=== PATIENT | female | born 1975 | race Caucasian/White ===

== ENCOUNTER 2017-12-19 11:29 | Emergency (ER) | payer OTHER ==
--- OUTSIDE RECORDS SUMMARY | 2017-12-19 11:33 | XMS REPORT | Continuity of Care Document ---
:1975 Author Organization Interface Problems Problem Status Onset Classification Date Comments Source Date Reported M25.571 - Active OPID PAIN IN 6 [place], RIGHT ANKLE OPID AND JOINTS [facility] Medications Medication Details Route Status Patient Ordering Order Source Instructions Provider Date Allergies, Adverse Reactions, Alerts Substance Category Reaction Severity Reaction Status Date Comments Source type Reported NKDA Assertion Drug Active OPID allergy [place] Immunizations Immunization Date Given Site Status Last Updated Comments Source Results Order Results Value Reference Date Interpretation Comments Source Name Range Ankle Ankle 2 RIGHT ANKLE RADIOGRAPH 2 VIEW 12/21 - OPID 2 views - [place] views DX CLINICAL INDICATION: Posttraumatic right lateral ankle pain Read by : Dalton Nguyen MD Dictated Date/time: 12/22/15 16:34 Electronically Signed by: Dalton Nguyen MD 12/22/15 16:35 FINAL REPORT COMPARISON: None IMPRESSION: There is soft tissue swelling of the lateral aspect of the ankle. No acute bony abnormalities are visualized. The bilateral malleoli, ankle mortise, and base of the fifth metatarsal appear intact. SL:16 Vital Signs Vital Sign Value Date Comments Source Encounters Location Location Encounter Encounter Reason Attending ADM DC Status Source Details Type Number For Provider Date Date Visit [facility] Outpt Diag [id number] Adeola 12/21 12/22 [facility] Lalit /2015 [facility] [place] [facility] [id number] LOAN 08/16 [facility] ESCALERA Robert Procedures Procedure Code Date Perfomer Comments Source Laparoscopic [id number] endometriosis OPID procedure<sup>1</ 0 [place] sup>
--- OUTSIDE RECORDS SUMMARY | 2017-12-19 11:33 | XMS REPORT | Summary of Care ---
:1975 Author Organization [facility] Outpatient [facility] [place] Address [address], [place] [address]- Encounter HQ Encntr_alias(FIN) [id number] Date(s): 12/22/15 - 12/22/15 [facility] Outpatient [address] [id number]- [phone] Discharge Disposition: Home or Self Care Attending Physician: Adeola Cohn MD Vital Signs No data available for this section Problem List No data available for this section Allergies, Adverse Reactions, Alerts Substance Reaction Severity Status NKDA Active Medications No data available for this section Results No data available for this section Immunizations No data available for this section Procedures Procedure Date Related Diagnosis Body Site Laparoscopic procedure1 04/01/99 1endometriosis Social History Social History Type Response Smoking Status Never smoker; Exposure to Tobacco Smoke None; Cigarette Smoking Last 365 Days No; Reg Smoking Cessation Counseling No Assessment and Plan No data available for this section
[2017-12-19 12:02] LABS: Absolute Lymphocytes (CBC) 1.6 K/uL (0.7-4.9); Absolute Monocytes 0.4 K/uL (0.1-1.3); Absolute Neutrophil 2.8 K/uL (1.8-8.0); Basophils % 1.1 % (0-1.3); Eosinophils % 1.3 % (0-4.4); Hematocrit 36.9 % (36.0-45.0); Lymphocytes % 32.7 % (15.3-44.8); MCH 32.1 pg (27.0-35.0); MCV 93.7 fL (80-100); MPV 9.1 fL (7.6-11.3); Monocytes % 7.8 % (3.3-12.3); RBC Red Blood Cell Count 3.94 M/uL (3.86-4.86)
[2017-12-19] MEDS ORDERED: MEPERIDINE HCL 50 MG/ML AMP ONE (12:07)
[2017-12-19] MEDS ORDERED: PROMETHAZINE 25 MG/ML VIAL ONE (12:07)
[2017-12-19 12:08] LABS: Urine Blood NEGATIVE (NEG); Urine Glucose NEGATIVE (NEG); Urine Protein NEGATIVE (NEG); Urine Specific Gravity 1.015 (1.005-1.030); Urine pH 5.5 (5.0-7.0)
[2017-12-19 12:11] LABS: Albumin 4.3 g/dL (3.4-5.0); Bilirubin Direct 0.1 mg/dL (0-0.2); Bilirubin Total 0.6 mg/dL (0.2-1.0); Potassium 3.6 mmol/L (3.5-5.1); Protein, Total 8.3 g/dL (6.4-8.2)
--- NOTE | 2017-12-19 12:50 | RAD REPORT ---
EXAM DESCRIPTION: US - Transvaginal Study Probe - 12/19/2017 12:38 pm CLINICAL HISTORY: ICD N92.5 heavy menses COMPARISON: none FINDINGS: The uterus measures 6 x 4 x 3cm. A fibroid is not seen. The endometrial stripe measures 9 millimeters The left ovary is normal in size and echotexture. A 6.8 centimeter right ovarian cystic mass is present. Blood flow seen within the right ovarian paren chyma. No significant free fluid is seen. IMPRESSION: 6.8 centimeter right ovarian cystic mass likely is benign. It is recommended that patien t have a follow-up ultrasound in a couple months to assess stability/resolution
--- NOTE | 2017-12-19 15:34 | RAD REPORT ---
EXAM DESCRIPTION: CT - Abdomen Pelvis W Contrast - 12/19/2017 3:26 pm CLINICAL HISTORY: Abdominal pain. Right lower quadrant pain COMPARISON: Pelvic ultrasound 12/19/2017 TECHNIQUE: Computed axial tomography of the abdomen and pelvis was obtained. 100 cc Isovue-300 is ad ministered intravenously. Oral contrast was given. All CT scans are performed using dose optimization technique as appropriate and may include automated exposure control or mA/KV adjustment according to patient size. FINDINGS: The liver, spleen, pancreas, adrenals and kidneys appear unremarkable. The appendix is normal caliber. There is no evidence of diverticulitis An 8 centimeter right ovarian cystic mass is present near midline extending into the upper pelvis. Si gnificant free fluid is not noted IMPRESSION: An 8 centimeter right ovarian cystic mass is present near midline extending into the upp er pelvis probably is benign. Significant free fluid is not noted. Follow up ultrasound in a couple m onths is recommended to assess stability/resolution
--- NOTE | 2017-12-19 15:48 | EDPHYS ---
Physician Documentation [facility] Name: Lenore Alexis Age: 42 yrs Sex: Female : 1975 Arrival Date: 12/19/2017 Time: 11:33 Bed 15 Private MD: ED Physician Gabriel Eagle HPI: 12/19 14:35 This 42 yrs old Female presents to ER via EMS with complaints of Abdominal Pain. jr8 14:35 The patient presents with abdominal pain right lower quadrant. Onset: The jr8 symptoms/episode began/occurred acutely, today. The symptoms do not radiate. Associated signs and symptoms: none. The symptoms are described as stabbing. Modifying factors: The symptoms are alleviated by nothing, the symptoms are aggravated by nothing. The patient has not experienced similar symptoms in the past. The patient has not recently seen a physician. 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 - Social history:: Smoking status: Patient/guardian denies using tobacco. - Ebola Screening: : No symptoms or risks identified at this time. ROS: 14:35 Constitutional: Negative for fever, chills, and weight loss. jr8 14:35 Abdomen/GI: Positive for abdominal pain, Negative for nausea, vomiting, and diarrhea, abdominal distension, anorexia, dysphagia, hematemesis, black/tarry stool, rectal pain, rectal bleeding, bowel incontinence, flatulence. 14:35 All other systems are negative. Exam: 14:35 ENT: Nares patent. No nasal discharge, no septal abnormalities noted. Tympanic jr8 membranes are normal and external auditory canals are clear. Oropharynx with no redness, swelling, or masses, exudates, or evidence of obstruction, uvula midline. Mucous membranes moist. Cardiovascular: Regular rate and rhythm with a normal S1 and S2. No gallops, murmurs, or rubs. Normal PMI, no JVD. No pulse deficits. Respiratory: Lungs have equal breath sounds bilaterally, clear to auscultation and percussion. No rales, rhonchi or wheezes noted. No increased work of breathing, no retractions or nasal flaring. Back: No spinal tenderness. No costovertebral tenderness. Full range of motion. Skin: Warm, dry with normal turgor. Normal color with no rashes, no lesions, and no evidence of cellulitis. MS/ Extremity: Pulses equal, no cyanosis. Neurovascular intact. Full, normal range of motion. Neuro: Awake and alert, GCS 15, oriented to person, place, time, and situation. Cranial nerves II-XII grossly intact. Motor strength 5/5 in all extremities. Sensory grossly intact. Cerebellar exam normal. Normal gait. 14:35 Abdomen/GI: Inspection: abdomen appears normal, Bowel sounds: active, all quadrants, Palpation: soft, in all quadrants, moderate abdominal tenderness, in the right lower quadrant, mass, is not appreciated, rebound tenderness, is not appreciated, voluntary guarding, is not appreciated, involuntary guarding, is not appreciated, no appreciated organomegaly, Indicators: McBurney's point is not tender, Sevilla's sign is negative, Rovsing's sign is negative, Liver: no appreciated palpable abnormalities, tenderness, is not appreciated. Vital Signs: 11:36 BP 140 / 94; Pulse 84; Resp 16 S; Temp 97.9(O); Pulse Ox 100% on R/A; Pain 10/10; jl7 12:30 BP 120 / 68; Pulse 72; Resp 16 S; Pulse Ox 100% on R/A; jl7 13:23 BP 122 / 76; Pulse 80; Resp 16 S; Pulse Ox 100% on R/A; jl7 14:30 BP 123 / 75; Pulse 65; Resp 16; Pulse Ox 100% on R/A; jl7 15:28 BP 111 / 68; Pulse 52; Resp 16 S; Pulse Ox 100% on R/A; jl7 MDM: 11:35 Patient medically screened. jr8 15:42 Data reviewed: vital signs, nurses notes, lab test result(s), radiologic studies, CT jr8 scan, ultrasound, and as a result, I will discharge patient. Data interpreted: Pulse oximetry: on room air is 100 %. Interpretation: normal. Counseling: I had a detailed discussion with the patient and/or guardian regarding: the historical points, exam findings, and any diagnostic results supporting the discharge/admit diagnosis, lab results, radiology results, the need for outpatient follow up, an OB/Gyne specialist, to return to the emergency department if symptoms worsen or persist or if there are any questions or concerns that arise at home. Response to treatment: the patient's symptoms have markedly improved after treatment. 12/19 11:38 Order name: Basic Metabolic Panel; Complete Time: 12:27 [facility] 12/19 11:38 Order name: CBC with Diff; Complete Time: 12:04 [facility] 12/19 11:38 Order name: Creatinine for Radiology; Complete Time: 12:27 [facility] 12/19 11:38 Order name: Hepatic Function; Complete Time: 12:27 [facility] 12/19 11:38 Order name: Lipase; Complete Time: 12:27 7 12/19 12:06 Order name: Urine Dipstick--Ancillary (enter results); Complete Time: 12:27 12/19 11:38 Order name: IV Saline Lock; Complete Time: 11:47 [facility] 12/19 11:38 Order name: Labs collected and sent; Complete Time: 11:48 [facility] 12/19 12:05 Order name: US Transvaginal Study (Probe); Complete Time: 12:[address] [facility] 12/19 12:06 Order name: Urine --Ancillary (enter results); Complete Time: 12:27 12/19 12:56 Order name: CT Abd/Pelvis - W/Contrast; Complete Time: 15:41 jr8 Administered Medications: 12:15 Drug: Demerol 25 mg Route: IVP; Site: left antecubital; jl7 12:45 Follow up: Response: No adverse reaction; Pain is decreased jl7 12:18 Drug: Phenergan 12.5 mg Route: IVP; Site: left antecubital; jl7 12:45 Follow up: Response: No adverse reaction; Nausea is decreased jl7 Disposition: 17:12 Co-signature as Attending Physician, Gabriel Eagle MD I agree with the assessment and kdr plan of care. Disposition: 12/19/17 15:47 Discharged to Home. Impression: Unspecified ovarian cysts, Abdominal and pelvic pain. - Condition is Stable. - Discharge Instructions: Abdominal Pain, Adult, Ovarian Cyst. - Prescriptions for Ibuprofen 800 mg Oral Tablet - take 1 tablet by ORAL route every 12 hours As needed take with food; 20 tablet. Tylenol- Codeine #3 300-30 mg Oral Tablet - take 2 tablet by ORAL route every 6 hours As needed; 30 tablet. Zofran 4 mg Oral Tablet - take 1 tablet by ORAL route every 12 hours As needed; 20 tablet. - Medication Reconciliation Form, Thank You Letter, Antibiotic Education, Prescription Opioid Use form. - Follow up: Private Physician; When: 2 - 3 days; Reason: Recheck today's complaints, Continuance of care, Re-evaluation by your physician. - Problem is new. - Symptoms have improved. Signatures: Dispatcher [employer] EDIA Gabriel Eagle MD MD kdr Roszak, Josh, PA PA jr8 Yudith Byrd RN RN jl7 Corrections: (The following items were deleted from the chart) 16:03 15:47 12/19/2017 15:47 Discharged to Home. Impression: Unspecified ovarian cysts; jl7 Abdominal and pelvic pain. Condition is Stable. Forms are Medication Reconciliation Form, Thank You Letter, Antibiotic Education, Prescription Opioid Use. Follow up: Private Physician; When: 2 - 3 days; Reason: Recheck today's complaints, Continuance of care, Re-evaluation by your physician. Problem is new. Symptoms have improved. jr8
--- NOTE | 2017-12-19 15:48 | ER ---
Nurse's Notes [facility] Name: Lenore Alexis Age: 42 yrs Sex: Female : 1975 Arrival Date: 12/19/2017 Time: 11:33 Bed 15 Private MD: Diagnosis: Unspecified ovarian cysts;Abdominal and pelvic pain Presentation: 12/19 11:34 Presenting complaint: EMS states: Severe RLQ abd pain, began at 0630 and has gotten jl7 worse. Transition of care: patient was not received from another setting of care. Onset of symptoms was December 19, 2017 at 06:30. Risk Assessment: Do you want to hurt yourself or someone else? Patient reports no desire to harm self or others. Initial Sepsis Screen: Does the patient meet any 2 criteria? No. Patient's initial sepsis screen is negative. Does the patient have a suspected source of infection? No. Patient's initial sepsis screen is negative. Care prior to arrival: IV initiated. 18 GA, in the left in the right Glucose check: 130. 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 - Social history:: Smoking status: Patient/guardian denies using tobacco. - Ebola Screening: : No symptoms or risks identified at this time. Screenin:46 Abuse screen: Denies threats or abuse. Denies injuries from another. Nutritional jl7 screening: No deficits noted. Tuberculosis screening: No symptoms or risk factors identified. Fall Risk IV access (20 points). Total Muller Fall Scale indicates No Risk (0-24 pts). Assessment: 11:46 General: See triage assessment. jl7 13:15 Reassessment: Pt finished drinking oral contrast, CT notified. jl7 14:25 Reassessment: Patient and/or family updated on plan of care and expected duration. Pain jl7 level reassessed. Patient is alert, oriented x 3, equal unlabored respirations, skin warm/dry/pink. pt reports decreased pain, states "It's manageable right now.". Pain: Denies pain. GI: Bowel sounds present X 4 quads. Abd is soft Abdomen is tender to palpation in right lower quadrant. 15:29 Reassessment: Patient appears in no apparent distress at this time. Patient and/or jl7 family updated on plan of care and expected duration. Pain level reassessed. Patient is alert, oriented x 3, equal unlabored respirations, skin warm/dry/pink. Patient states feeling better. Vital Signs: 11:36 BP 140 / 94; Pulse 84; Resp 16 S; Temp 97.9(O); Pulse Ox 100% on R/A; Pain 10/10; jl7 12:30 BP 120 / 68; Pulse 72; Resp 16 S; Pulse Ox 100% on R/A; jl7 13:23 BP 122 / 76; Pulse 80; Resp 16 S; Pulse Ox 100% on R/A; jl7 14:30 BP 123 / 75; Pulse 65; Resp 16; Pulse Ox 100% on R/A; jl7 15:28 BP 111 / 68; Pulse 52; Resp 16 S; Pulse Ox 100% on R/A; jl7 ED Course: 11:33 Patient arrived in ED. jl7 11:35 Triage completed. jl7 11:35 Iron Aguilar PA is PHCP. jr8 11:35 Gabriel Eagle MD is Attending Physician. jr8 11:36 Arm band placed on right wrist. jl7 11:46 Yudith Byrd RN is Primary Nurse. jl7 11:46 Initial lab(s) drawn, by ri, sent to lab. Inserted saline lock: 20 gauge in right mh5 antecubital area, using aseptic technique. Blood collected. 11:46 No provider procedures requiring assistance completed. jl7 11:47 Patient has correct armband on for positive identification. Placed in gown. Bed in low mh5 position. Call light in reach. Side rails up X 1. Warm blanket given. Pulse ox on. NIBP on. 11:47 Basic Metabolic Panel Sent. 5 11:47 CBC with Diff Sent. mh5 11:47 Creatinine for Radiology Sent. 5 11:47 Hepatic Function Sent. 5 11:47 Lipase Sent. mh5 12:38 US Transvaginal Study (Probe) In Process Unspecified. EDMS 15:[address] via wheelchair. sj 15:15 CT completed. Patient tolerated procedure well. Patient moved back from CT. sj 15:26 CT Abd/Pelvis - W/Contrast In Process Unspecified. EDMS 16:02 IV discontinued, intact, bleeding controlled, No redness/swelling at site. Pressure jl7 dressing applied. Administered Medications: 12:15 Drug: Demerol 25 mg Route: IVP; Site: left antecubital; jl7 12:45 Follow up: Response: No adverse reaction; Pain is decreased jl7 12:18 Drug: Phenergan 12.5 mg Route: IVP; Site: left antecubital; jl7 12:45 Follow up: Response: No adverse reaction; Nausea is decreased jl7 Outcome: 15:47 Discharge ordered by . laura 16:02 Discharged to home ambulatory, with family. jl7 16:02 Condition: stable 16:02 Discharge instructions given to patient, family, Instructed on discharge instructions, follow up and referral plans. medication usage, Demonstrated understanding of instructions, follow-up care, medications, Prescriptions given X 3. 16:03 Patient left the ED. jl7 Signatures: Dispatcher [employer] Gabriela Stone Josh, PA PA jrOdalys Tejeda Yudith Lares RN RN jl7
== END 2017-12-19 16:03 | disposition home or self-care (01) ==
LOC: ER 11:29
DX: N83.209 Unspecified ovarian cyst, unspecified side (principal); E03.9 Hypothyroidism, unspecified
CPT/HCPCS: 36415; 74177; 76830; 80048; 80076; 81003; 81025; 83690; 85025; 96374; 96375; 99285; J2175; J2550; Q9967